=== PATIENT | male | born 1965 | race Two or more races ===

== ENCOUNTER 2024-05-07 11:02 | Emergency (ER) | payer BC, OTHER ==
[~2024-05-07] VITALS: Ht 175.3 cm; Wt 90.7 kg
[2024-05-07] MEDS ORDERED: SIMV10TA98 PO (11:29)
[2024-05-07] MEDS ORDERED: HYDR-4384 PO (11:29)
[2024-05-07] MEDS ORDERED: ASPI81TA31 PO (11:29)
[2024-05-07 13:43] VITALS: BP 148/89; TEMP 98; O2SAT 98
== END 2024-05-07 13:43 | disposition home or self-care (01) ==
LOC: ER 11:02 → EDSEX 11:02 → ER 13:43
DX: I83.023 Varicose veins of left lower extremity with ulcer of ankle (principal); L97.329 Non-pressure chronic ulcer of left ankle with unspecified severity; N40.0 Benign prostatic hyperplasia without lower urinary tract symptoms; E78.00 Pure hypercholesterolemia, unspecified; Z79.82 Long term (current) use of aspirin; Z79.899 Other long term (current) drug therapy; Z88.7 Allergy status to serum and vaccine
CPT/HCPCS: 73590; 73620; A4606; A4663